=== PATIENT | female | born 1995 | race Hispanic/Latino ===

== ENCOUNTER 2024-08-30 22:41 | Emergency (ER) | payer OTHER ==
[~2024-08-30] VITALS: Ht 149.9 cm; Wt 93.0 kg
[2024-08-30] MEDS: ACETAMINOPHEN 325 MG TAB PO ONE (23:39)
[2024-08-31] MEDS ORDERED: ONDANSETRON ODT4 MG PO (02:05)
[2024-08-31] MEDS ORDERED: MACROBID 100 M100 MG PO (02:05)
[2024-08-31 02:15] VITALS: PULSE 71; RESP 16; TEMP 98.1
[2024-08-31 02:30] VITALS: BP 107/58; PULSE 71; RESP 16; TEMP 98.1; O2SAT 99
[2024-08-31] MEDS ORDERED: NITROFURANTOIN MACROCRYSTALS 100 MG CAP PO SCH ×2 (02:30→09:00)
== END 2024-08-31 02:35 | disposition home or self-care (01) ==
LOC: FSED 22:57
DX: O26.892 Other specified pregnancy related conditions, second trimester (principal); O99.891 Other specified diseases and conditions complicating pregnancy; N13.30 Unspecified hydronephrosis; R31.9 Hematuria, unspecified; R10.9 Unspecified abdominal pain
CPT/HCPCS: 76705; 80053; 81003; 85025; 99284